=== PATIENT | male | born 1930 | race Caucasian/White ===

== ENCOUNTER 2017-01-26 09:04 | Inpatient (IN) ==
[2017-01-26] MEDS ORDERED: ONDANSETRON 4 MG/2 ML VIAL IV PRN (09:08)
[2017-01-26] MEDS ORDERED: MORPHINE 2 MG/1 ML SYRINGE IV PRN (09:08)
[2017-01-26] MEDS ORDERED: ACETAMINOPHEN 325 MG TABLET PO PRN (09:08)
[2017-01-26] MEDS: SODIUM CHLORIDE 0.45% 1,000 ML IV SCH (10:49)
--- NOTE | 2017-01-26 11:11 | DUMMY REPORT TO COMPLETE ORDER ---
See report scanned to EMR
[2017-01-26 11:18] LABS: Basophils % 0.2 % (0.0-0.8); Eosinophils # 0.1 10*3/uL (0.0-0.87); Eosinophils % 0.5 % (0.00-10.9); Hematocrit 35.4 VOL% (42.0-52.0); Hemoglobin 11.6 GM/DL (14.0-18.0); Immature Granulocytes % 0.4 %; Immature Granulocytes Absolute 0.04 #; Lymphocytes # 0.6 10*3/uL (1.4-4.0); Lymphocytes % 6.2 % (21.2-54.2); Mean Corpuscular HGB Conc 32.8 GM/DL (32-36); Mean Corpuscular Hemoglobin 30 PG (27-34); Mean Corpuscular Volume 92.9 FL (87-102); Mean Platelet Volume 9.4 FL (9.6-12.0); Monocytes # 1.1 10*3/uL (0.11-0.8); Monocytes % 11.1 % (1.7-12.7); Neutrophils # 8.3 10*3/uL (1.4-7.4); Neutrophils % 81.6 % (38.7-73.9); Platelet Count 260 T/CUMM (130-400); Red Blood Count 3.81 MC/CUMM (3.8-5.5); Red Cell Distribution Width 15.1 % (9.3-17.3); White Blood Count 10.1 T/CUMM (4-12)
[2017-01-26] MEDS: AMPICILLIN/SULBACTAM 1,500 MG in SODIUM CHLORIDE 0.9% 50 ML IV SCH ×2 (11:42→18:15)
--- NOTE | 2017-01-26 11:42 | General Surgery Consult Note ---
Assessment and Plan (1) Right lower quadrant abdominal pain Status: Acute Assessment and plan: At this time, labs and imaging are pending. We will follow-up on the results and make recommendations as warranted. Dr. Valverde to follow. Current Visit: Yes History of Present Illness Chief complaint: Abd pain History of present illness: Mr. Villatoro is a 86 year old male with past medical history of CAD status post CABG approximately 10 years ago, hypertension, hyperlipidemia, hypothyroidism and known cholelithiasis who reports a 3 day history of abdominal pain. He reports the pain is constant and severe and began as generalized abdominal pain and then localized right lower quadrant in the past 24 hours. He reports associated nausea and subjective fever, without vomiting, diarrhea, melena, hematochezia, rigors, chest pain, shortness of breath, wheeze, cough, or urinary symptoms. He was started on Actigall and Keppra 2017 for cholelithiasis , and reports overall the symptoms associated with associated with his right upper quadrant have improved. In general, he reports a decline over the past few months with fatigue, anorexia, and nausea even with the odor of food. He reports a 10 pound unintentional weight loss in the past few months without bowel changes; he is up-to-date on his colonoscopy. For the fatigue, he was recently found to be hypotensive with Dr. Pandey and cardiology and his blood pressure medications were reduced with minimal improvement in symptoms. Home Medications Medication Instructions Recorded Confirmed Type Amiodarone Tab [Cordarone Tab] 200 mg PO QPM 06/27/15 01/26/17 History Aspirin EC Tab 81 mg PO QPM 06/27/15 01/26/17 History Carvedilol [Coreg] 6.25 mg PO BID 06/27/15 01/26/17 History Simvastatin [Zocor] 10 mg PO QPM 06/27/15 01/26/17 History Benazepril [Lotensin] 1.5 mg PO QPM 10/30/16 01/26/17 History Levothyroxine Tab [Synthroid Tab] 100 mcg PO QPM 10/30/16 01/26/17 History Ursodiol 300 mg PO BID 10/30/16 01/26/17 History Allergies Allergy/AdvReac Type Severity Reaction Status Date / Time No Known Allergies Allergy Verified 10/30/16 13:18 Medical,Surgical,& Family Hx - Medical History Cardio: History of: Cardiac Dysrhythmia (atrial fib), CAD, Hypertension, [place], Pacemaker No history of: CHF Neurology: No history of: Seizures HEENT: History of: Eye Problem (glasses), Dental Problems (dentures) Endocrine: History of: Dyslipidemia, Thyroid Disorder Genitourinary: History of: Bladder Problem, Kidney Stones, Prostate Problems ( cancer) Gastrointestinal: History of: Diverticulitis/ Diverticulosis, GERD, GI Problems (Cholelithiasis on Actigall) Musculoskeletal: History of: Musculoskeletal Problems (ARTHRITIS-hands) Hematology: History of: Anemia No history of: Blood Transfusion Reaction Other: History of: Cancer (prostate) No history of: Anesthesia Reactions - Surgical History Cardiac Surgeries: Sugical HX of: Cardiac Catheterization, Cardiac Surgery (CABG -triple) Patient Denies: Carotid Endarterectomy HEENT Surgeries: Surgical HX of: Eye Surgery (cataracts) Abdominal Surgeries: Surgical HX of: Colonoscopy, EGD, Hernia Repair Patient denies: Appendectomy, Cholecystectomy Orthopedic Surgeries: Patient denies;: Orthopedic Surgery - Family History Family History: Reports;: Family Cancer (brother) - Social History Smoking Status: Never smoker Frequency of Alcohol Use: None Type of Drug Use: None Marital Status: Lives With:: Spouse Functional capacity: independent ambulation - Cardiovascular Cardiovascular: Present: as per HPI - Respiratory Respiratory: Present: as per HPI - Gastrointestinal Gastrointestinal: Present: as per HPI - Genitourinary Genitourinary: Present: as per HPI Hematologic/Lymphatic: Absent: easy bleeding, easy bruising Exam - Constitutional Vitals: Period Temp Pulse Resp BP Sys/Willard Pulse Ox Last 24 Hr 97.8 F 80 18 150/75 92 General appearance: no acute distress - Head Head exam: Present: normocephalic - Eye Eye exam: Absent: scleral icterus - Neck Neck exam: Present: trachea midline - Respiratory Respiratory exam: Present: clear to auscultation bilaterally - Cardiovascular Cardiovascular exam: Present: RRR - GI/Abdominal GI/Abdominal exam: Present: normal bowel sounds, tenderness (Right lower quadrant), soft. Absent: distended, guarding, Rainey's sign - Extremities Exam Extremities exam: Absent: calf tenderness, edema - Neurological Exam Neurological exam: Present: alert, oriented X3 Speech: Present: normal - Skin Skin exam: Present: normal color, warm Results - Labs CBC & BMP: 01/26/17 11:09 Labs: CMP, lactic acid, and lipase pending - Impressions CT scan abdomen pelvis been Previous medical record was reviewed with acknowledgment of findings of esophageal stricture and GERD by EGD with Dr. Omkar Cardoso in June 2015 and May abdominal ultrasound revealed cholelithiasis for which Actigall was initiated; no evidence of cholecystitis at that time
[2017-01-26 11:48] LABS: Albumin 3.2 G/DL (3.4-5.0); Bilirubin,Total 0.5 MG/DL (0.2-1.0); Calcium 8.6 MG/DL (8.5-10.1); Potassium 4.6 MMOL/L (3.5-5.1); Total Protein 6.7 G/DL (6.4-8.3)
[2017-01-26 11:53] LABS: Apearance,Urine Slightly Hazy (Clear); Bacteria,Urine Occasional /HPF (Few); Bilirubin,Urine Negative (Negative); Blood, Urine Large mg/dL (Negative); Glucose,Urine (UA) Negative (Negative); Hyaline Casts,Urine 2 /LPF (0-3); Ketones,Urine 5 mg/dL (Negative); Mucus,Urine Occasional /LPF (Occasional); Nitrite,Urine Negative (Negative); Protein,Urine 30 MG/DL; RBC,Urine 148 /HPF (0-4); Urine Color Yellow (Yellow); Urine Specific Gravity 1.024 (1.001-1.035); Urine Urobilinogen < 2.0 EU/DL (0.2-1.0); WBC,Urine 1 /HPF (0-6)
--- NOTE | 2017-01-26 12:32 | XRay Report ---
Portable chest Date: 01/26/2017 Clinical history: Respiratory preoperative evaluation Comparison: 10/30/2016 Technique: Portable AP sitting chest Findings: Persistent cardiomegaly in patient with prior median sternotomy with stable left subclavian atrioventricular AICD. Progressive relative elevation of the left hemidiaphragm with increased adjacent atelectasis with underlying scarring. Gaseous distention of the visualized bowel in the left upper quadrant. Old healed fracture of the left clavicle with degenerative changes. Impression: Status post median sternotomy with chronic scarring. Left subclavian atrioventricular AICD. Progressive elevation of the left hemidiaphragm with increased atelectasis at the left lung base and associated gaseous distention of the visualized bowel. Follow-up x-ray of the abdomen may be helpful for further evaluation. PROCEDURE INTERPRETED AT [facility] DEPARTMENT OF RADIOLOGY Final Report Signed by: Dr. Ruthie Gee
--- NOTE | 2017-01-26 14:18 | CT Report ---
CT of the abdomen and pelvis without intravenous contrast. Indication: Right lower quadrant abdominal pain. Oral contrast was administered. Comparison is made to a previous exam of March 20, 2008. There are chronic lung changes present within the bases, which have progressed since the previous study. There has been a previous median sternotomy. The heart is enlarged. There is a pacemaker present. There is no pericardial effusion. There is coronary artery calcification. There is elevation of the left hemidiaphragm. There is increased density of the liver which was not present in 2008. No focal liver lesions are noted. The liver size is normal. There is no biliary ductal dilatation. Gallstones are visible. There are splenic granulomas. The spleen size is normal. The adrenal glands are normal in size. There is pancreatic atrophy. No focal pancreatic lesions are seen and there is no pancreatic ductal dilatation. The kidneys demonstrate cortical thinning bilaterally. There is an extrarenal pelvis on the left. There is a 5 mm calculus at the lower pole of the right kidney. The right ureter is dilated to the L4 level, where a 5 mm calculus results in moderate hydronephrosis. There is stranding in the pararenal fat, and in the retroperitoneum which could be due to microperforation or infection. The urinary bladder presents a normal appearance. There are foreign bodies seen within the prostate gland consistent with radiation pellets. There is heavy calcific plaque within the abdominal aorta and iliac arteries which are not dilated. The gastric contour is normal. The loops of small intestine are not significantly dilated. The terminal ileum and appendix present a normal appearance. The cecum is prominent and contains a large amount of fecal material and gas. Similar findings are seen involving the transverse colon. There is no evidence of bowel obstruction. Scattered diverticuli within the distal colon. No findings to suggest diverticulitis. No free air or free fluid is noted within the pelvic region. The osseous structures are diffusely demineralized. Degenerative changes are also present. Impression: 1. Obstruction of the right mid ureter by 5 mm calculus resulting in moderate hydronephrosis. 2. Stranding around the kidney, and ureter on the right, which could be due to microperforation or infection. 3. Progressive scarring at the lung bases. 4. Cardiomegaly. 5. Chronic elevation of the left hemidiaphragm. 6. Interval development of a hyperdense liver, which can be due to iron overload, Doroteo disease, glycogen storage disease, or certain drugs including amiodarone. 7. Diverticulosis without findings of diverticulitis. 8. Cholelithiasis. 9. Left extrarenal pelvis. The CT exam was performed using one or more of the following dose reduction techniques: Automated exposure control, adjustment of the mA and/or kV according to patient size, or use of iterative reconstruction technique. PROCEDURE INTERPRETED AT [facility] DEPARTMENT OF RADIOLOGY Final Report Signed by: Dr. Julianna Caballero
--- NOTE | 2017-01-26 15:02 | Urology Consultation ---
History of Present Illness - Data of Consult Consult date: 01/26/17 - Consult Narrative History of present illness: Mr. Villatoro is a 86 year old male This 86-year-old white male is known to me. He has a past history of bladder stones but no renal stones. He was admitted to the hospital with a 2-3 day history of pain in the right lower abdomen and his evaluation thus far includes a urinalysis which shows hematuria slight elevation in his creatinine and a CT scan shows a stone in the right kidney and a 5 mm stone in the right mid ureter. He denies any flank pain and he has no CVA tenderness on physical examination. The stone in the right kidney is also 5 mm. There is moderate hydronephrosis on the CT scan. Meningitic. I am going to get a KUB and tomograms of the right ureter to see if the stone is visualized and then we can either consider lithotripsy ureteroscopy or give the patient an opportunity to pass the stone CC: Wade Rojas MD - Home Medications and Allergies Home Medications: Home Medications Medication Instructions Recorded Confirmed Type Amiodarone Tab [Cordarone Tab] 200 mg PO BEDTIME 06/27/15 01/26/17 History Aspirin EC Tab 81 mg PO BEDTIME 06/27/15 01/26/17 History Carvedilol [Coreg] 6.25 mg PO BID W/MEALS 06/27/15 01/26/17 History Simvastatin [Zocor] 10 mg PO BEDTIME 06/27/15 01/26/17 History Benazepril [Lotensin] 1.25 mg PO BEDTIME 10/30/16 01/26/17 History Levothyroxine Tab [Synthroid Tab] 100 mcg PO BEDTIME 10/30/16 01/26/17 History Ursodiol 300 mg PO BID 10/30/16 01/26/17 History Allergies/Adverse Reactions: Allergies Allergy/AdvReac Type Severity Reaction Status Date / Time No Known Allergies Allergy Verified 10/30/16 13:18 Medical,Surgical,& Family Hx - Medical History Cardio: History of: Cardiac Dysrhythmia (atrial fib), CAD, Hypertension, [place], Pacemaker No history of: CHF Neurology: No history of: Seizures HEENT: History of: Eye Problem (glasses), Dental Problems (dentures) Endocrine: History of: Dyslipidemia, Thyroid Disorder Respiratory: History of: Respiratory Problems (gets sob with atrial fib at times ) Genitourinary: History of: Bladder Problem, Kidney Stones, Prostate Problems ( cancer) Gastrointestinal: History of: Diverticulitis/ Diverticulosis, GERD, GI Problems (Cholelithiasis on Actigall) No history of: Hepatitis, Liver Problems Musculoskeletal: History of: Musculoskeletal Problems (ARTHRITIS-hands) Hematology: History of: Anemia No history of: Blood Transfusion Reaction Other: History of: Cancer (prostate) No history of: Anesthesia Reactions - Surgical History Cardiac Surgeries: Sugical HX of: Cardiac Catheterization, Cardiac Surgery (CABG -triple) Patient Denies: Carotid Endarterectomy HEENT Surgeries: Surgical HX of: Eye Surgery (cataracts) Patient denies: Carotid Endarterectomy, Tonsilectomy & Adenoidectomy Abdominal Surgeries: Surgical HX of: Colonoscopy, EGD, Hernia Repair Patient denies: Appendectomy, Cholecystectomy Orthopedic Surgeries: Patient denies;: Orthopedic Surgery - Family History Family History: Reports;: Family Cancer (brother) - Social History Smoking Status: Never smoker Frequency of Alcohol Use: None Type of Drug Use: None Exam - Constitutional Vitals: Period Temp Pulse Resp BP Sys/Willard Pulse Ox Last 24 Hr 97.8 F-97.8 F 67-80 18-18 150-197/75-89 92-93 Results - Labs CBC & BMP: 01/26/17 11:09 01/26/17 11:08
[2017-01-26] MEDS: CARVEDILOL 6.25 MG TABLET PO SCH (16:29)
--- NOTE | 2017-01-26 17:06 | Family Practice History&Phys ---
Assessment and Plan (1) Right lower quadrant abdominal pain Status: Acute Assessment and plan: 01/26/2017: CT of the abdomen and pelvis has been ordered surgery was consulted and after results of CT urology consult Current Visit: Yes History of Present Illness Chief complaint: Abdominal pain History of present illness: Mr. Villatoro is a 86 year old male Patient is a 86-year-old gentleman presented to my office complaining of severe right-sided abdominal pain. States pain radiated into his right flank as well. Patient had nausea and vomiting associated with this and just felt horrible. She does have a history of gallstones but really never had any pain associated with these. He has not had any fever that he has measured his felt hot. He denies any diarrhea or any blood in his stool or urine. He has lost his appetite. Patient frankly appeared very miserable in the office and he was admitted for emergent evaluation of this discomfort. Home Medications Medication Instructions Recorded Confirmed Type Amiodarone Tab [Cordarone Tab] 200 mg PO BEDTIME 06/27/15 01/26/17 History Aspirin EC Tab 81 mg PO BEDTIME 06/27/15 01/26/17 History Carvedilol [Coreg] 6.25 mg PO BID W/MEALS 06/27/15 01/26/17 History Simvastatin [Zocor] 10 mg PO BEDTIME 06/27/15 01/26/17 History Benazepril [Lotensin] 1.25 mg PO BEDTIME 10/30/16 01/26/17 History Levothyroxine Tab [Synthroid Tab] 100 mcg PO BEDTIME 10/30/16 01/26/17 History Ursodiol 300 mg PO BID 10/30/16 01/26/17 History Allergies Allergy/AdvReac Type Severity Reaction Status Date / Time No Known Allergies Allergy Verified 10/30/16 13:18 - Constitutional Constitutional: Present: fever(s), weight loss. Absent: chills, weakness, weight gain - EENT Eyes: Absent: blurry vision, loss of vision Ears: Absent: decreased hearing Nose, mouth and throat: Absent: nasal congestion, sinus pressure, sore throat - Cardiovascular Cardiovascular: Absent: chest pain at rest, diaphoresis, palpitations - Respiratory Respiratory: Absent: cough, dyspnea, wheezing - Gastrointestinal Gastrointestinal: Present: abdominal pain, nausea, vomiting. Absent: diarrhea, hematochezia, melena - Genitourinary Genitourinary: Absent: dysuria, flank pain, hematuria, nocturia - Musculoskeletal Musculoskeletal: Absent: arthralgias, back pain - Neurological Neurological: Absent: abnormal gait, confusion, focal weakness, numbness, paresthesias - Psychiatric Psychiatric: Absent: anxiety, depression - Endocrine Endocrine: Absent: fatigue, polydipsia, polyphagia - Hematologic/Lymphatic Hematologic/Lymphatic: Absent: easy bleeding, easy bruising Medical,Surgical,& Family Hx - Medical History Cardio: History of: Cardiac Dysrhythmia (atrial fib), CAD, Hypertension, [place], Pacemaker No history of: CHF Neurology: No history of: Seizures HEENT: History of: Eye Problem (glasses), Dental Problems (dentures) Endocrine: History of: Dyslipidemia, Thyroid Disorder Respiratory: History of: Respiratory Problems (gets sob with atrial fib at times ) Genitourinary: History of: Bladder Problem, Kidney Stones, Prostate Problems ( cancer) Gastrointestinal: History of: Diverticulitis/ Diverticulosis, GERD, GI Problems (Cholelithiasis on Actigall) No history of: Hepatitis, Liver Problems Musculoskeletal: History of: Musculoskeletal Problems (ARTHRITIS-hands) Hematology: History of: Anemia No history of: Blood Transfusion Reaction Other: History of: Cancer (prostate) No history of: Anesthesia Reactions - Surgical History Cardiac Surgeries: Sugical HX of: Cardiac Catheterization, Cardiac Surgery (CABG -triple) Patient Denies: Carotid Endarterectomy HEENT Surgeries: Surgical HX of: Eye Surgery (cataracts) Patient denies: Carotid Endarterectomy, Tonsilectomy & Adenoidectomy Abdominal Surgeries: Surgical HX of: Colonoscopy, EGD, Hernia Repair Patient denies: Appendectomy, Cholecystectomy Orthopedic Surgeries: Patient denies;: Orthopedic Surgery - Family History Family History: Reports;: Family Cancer (brother) - Social History Smoking Status: Never smoker Frequency of Alcohol Use: None Type of Drug Use: None Exam - Constitutional Vitals: Period Temp Pulse Resp BP Sys/Willard Pulse Ox Last 24 Hr 97.8 F-98.1 F 67-80 18-20 150-197/75-89 92-93 Exam: General: Objective patient is a well-developed white male who appears to be a great deal of discomfort. He is able to answer questions appropriately HEENT: Pupils equal and reactive to light. Patent nares and airway Neck: No meningismus, adenopathy, thyromegaly. There are no auscultated carotid bruits. Cardiovascular: Regular rhythm. No murmurs or gallops Chest: Clear to auscultation without rales rhonchi wheezes. Abdomen: Patient has direct tenderness of right lower quadrant. There is no rebound or guarding tenderness noted. Bowel sounds were considered normal. Neuro: Cranial nerves intact and DTRs and strength symmetric in all extremities. Dermatologic: No evidence of abnormal lesions or masses. Musculoskeletal: Patient has prominent degenerative changes consistent with osteoarthritis of both hands. Extremities: There is no calf swelling or tenderness Results - Labs CBC & BMP: 01/26/17 11:09 01/26/17 11:08 Lab Results: I have reviewed the past 24 hour labs - Diagnostic Findings Procedure: CT Abdomen and Pelvis: report reviewed by me (Right mid ureteral calculus with hydronephrosis)
--- NOTE | 2017-01-26 17:41 | XRay Report ---
KUB. Renal tomograms. 12 images total. Indication: Hydronephrosis of the right mid ureter. There is gaseous distention of the colon with considerable fecal material. There has been a previous right inguinal hernia repair. Cardiac hardware is seen within the heart. The renal outlines are secured. The calculus seen on CT is located at the L5 level, it measures 5.5 mm on plain film. Tomogram images demonstrate normal location of the kidneys. Bowel limits the exam. The calculus seen within the right ureter is located at the L4-L5 level. It measures 5 mm. PROCEDURE INTERPRETED AT [facility] DEPARTMENT OF RADIOLOGY Final Report Signed by: Dr. Julianna Caballero
[2017-01-26] MEDS ORDERED: AMIODARONE 200 MG TABLET PO SCH (21:00)
[2017-01-26] MEDS ORDERED: LEVOTHYROXINE 100 MCG TABLET PO SCH (21:00)
[2017-01-26] MEDS ORDERED: BENAZEPRIL 5 MG TABLET PO SCH (21:00)
[2017-01-26] MEDS ORDERED: SIMVASTATIN 10 MG TABLET PO SCH (21:00)
[2017-01-26] MEDS: DOCUSATE SODIUM 100 MG CAPSULE PO SCH (21:57)
[2017-01-26] MEDS: URSODIOL 300 MG CAPSULE PO SCH (21:57)
[2017-01-27] MEDS: SODIUM CHLORIDE 0.45% 1,000 ML IV SCH (02:36)
[2017-01-27] MEDS: AMPICILLIN/SULBACTAM 1,500 MG in SODIUM CHLORIDE 0.9% 50 ML IV SCH ×2 (02:37→09:54)
--- NOTE | 2017-01-27 07:28 | Family Practice Progress Note ---
Family Practice - PN: Subj Interval history: Patient states he feels much better this morning. He is certainly not passed his stone as of yet. He denies any nausea vomiting this morning. His stone parent is visible on the tomogram views. Exam (Progress Note) - Constitutional Vitals: Period Temp Pulse Resp BP Sys/Willard Pulse Ox Last 24 Hr 97.5 F-99.2 F 64-80 18-21 137-197/70-89 92-97 Exam: Objective well-developed gentleman who is certainly much more comfortable than yesterday. He states his pain is practically gone at present. Cardiovascular: Heart rates regular without murmurs or gallops Respiratory: The lungs clear to auscultation bilaterally. Abdomen: Abdomen soft and nontender to palpation. Results - Labs CBC & BMP: 01/26/17 11:09 01/26/17 11:08 Lab Results: I have reviewed the past 24 hour labs - Diagnostic Findings Procedure: CT Abdomen and Pelvis: report reviewed by me (Right ureteral calculus ) Assessment and Plan (1) Right lower quadrant abdominal pain Status: Acute Assessment and plan: 01/26/2017: CT of the abdomen and pelvis has been ordered surgery was consulted and after results of CT urology consult 01/27/2017: Patient certainly much relief this morning. Urology to decide whether not to proceed with ESWL Current Visit: Yes
[2017-01-27] MEDS ORDERED: BISACODYL 10 MG SUPP RECTAL ONE (07:49)
--- NOTE | 2017-01-27 07:51 | Discharge Summary ---
Hospital Course - Hospital Course Hospital Course: Patient is a 69-year-old gentleman who presented to the office today admission with severe abdominal pain. He had right lower quadrant tenderness directly. He was admitted emergently and a CT scan was obtained which revealed him to have a 5 mm mid right ureteral stone. Patient in consultation by Dr. Jesse Dumas. Patient is feeling much better and will be discharged today to go for outpatient lithotripsy. Diagnosis - Discharge Diagnosis (1) Right lower quadrant abdominal pain Status: Acute (2) Right ureteral calculus Status: Acute Discharge Plan - Discharge Data Disposition: Disch To Home/Self Care Condition at Discharge: Stable Discharge Diet: advance to your usual diet Activity: resume usual activities as tolerated Hygiene: no restrictions Weight Bearing at Discharge: full weight bearing Driving: no restrictions Contact your physician if you experience:: fever over 101 - Discharge Medications New HYDROcodone/ACETAMIN 7.5-325 [Noel 7.5-325] 1 tablet PO Q6H #20 tablet Ondansetron Tab [Zofran Tab] 4 mg PO Q6H #20 tablet Continue Simvastatin [Zocor] 10 mg PO BEDTIME Carvedilol [Coreg] 6.25 mg PO BID W/MEALS Aspirin EC Tab 81 mg PO BEDTIME Amiodarone Tab [Cordarone Tab] 200 mg PO BEDTIME Levothyroxine Tab [Synthroid Tab] 100 mcg PO BEDTIME Benazepril [Lotensin] 1.25 mg PO BEDTIME Ursodiol 300 mg PO BID - Follow Up or Referral Follow Up: Wade Rojas MD [Primary Care Provider] - 1 Month - Forms/Instructions Exam - Constitutional Vitals: Period Temp Pulse Resp BP Sys/Willard Pulse Ox Last 24 Hr 97.5 F-99.2 F 64-80 18-21 137-197/70-89 92-97 Exam: Objective well-developed gentleman who is certainly much more comfortable than yesterday. He states his pain is practically gone at present. Cardiovascular: Heart rates regular without murmurs or gallops Respiratory: The lungs clear to auscultation bilaterally. Abdomen: Abdomen soft and nontender to palpation. Discharge Results Procedures and tests throughout hospitalization: Pending Orders 01/26/17 11:09 Blood Culture Stat Labs on day of discharge: Labs from last 24 hours 01/26/17 01/26/17 01/26/17 11:41 11:09 11:08 WBC 10.1 RBC 3.81 Hgb 11.6 L Hct 35.4 L MCV 92.9 MCH 30 MCHC 32.8 RDW 15.1 Plt Count 260 MPV 9.4 L Neut % (Auto) 81.6 H Lymph % (Auto) 6.2 L Brewster % (Auto) 11.1 Eos % (Auto) 0.5 Baso % (Auto) 0.2 Neut # (Auto) 8.3 H Lymph # (Auto) 0.6 L Brewster # (Auto) 1.1 H Eos # (Auto) 0.1 Baso # (Auto) 0.0 Immature Gran % 0.4 Nucleated RBC % 0.0 Immature Gran # 0.04 Nucleated RBCs # 0.00 Immature Plt Fraction 0.0 Sodium Potassium Chloride Carbon Dioxide Anion Gap BUN Creatinine GFR Calculation BUN/Creatinine Ratio Glucose Calculated Osmolality Lactic Acid Calcium Total Bilirubin AST ALT Alkaline Phosphatase Total Protein Albumin Globulin Albumin/Globulin Ratio Lipase 113.0 Urine Color Yellow Urine Appearance Slightly hazy Urine pH 5.0 Ur Specific Ellsworth 1.024 Urine Protein 30 Urine Glucose (UA) Negative Urine Ketones 5 Urine Blood Large Urine Nitrate Negative Urine Bilirubin Negative Urine Urobilinogen < 2.0 H Urine Leukocytes Negative Urine RBC 148 Urine WBC 1 Urine Bacteria Occasional Hyaline Casts 2 Urine Mucus Occasional Ur Culture Indicated? Not indicated 01/26/17 01/26/17 11:08 10:59 WBC RBC Hgb Hct MCV MCH MCHC RDW Plt Count MPV Neut % (Auto) Lymph % (Auto) Brewster % (Auto) Eos % (Auto) Baso % (Auto) Neut # (Auto) Lymph # (Auto) Brewster # (Auto) Eos # (Auto) Baso # (Auto) Immature Gran % Nucleated RBC % Immature Gran # Nucleated RBCs # Immature Plt Fraction Sodium 136 Potassium 4.6 Chloride 102 Carbon Dioxide 28 Anion Gap 10.6 BUN 35 H Creatinine 1.80 H GFR Calculation 33 BUN/Creatinine Ratio 19.00 Glucose 107 H Calculated Osmolality 279.0 Lactic Acid 0.8 Calcium 8.6 Total Bilirubin 0.50 AST 43 H ALT 49 Alkaline Phosphatase 111 Total Protein 6.7 Albumin 3.2 L Globulin 3.5 Albumin/Globulin Ratio 0.9 L Lipase Urine Color Urine Appearance Urine pH Ur Specific Ellsworth Urine Protein Urine Glucose (UA) Urine Ketones Urine Blood Urine Nitrate Urine Bilirubin Urine Urobilinogen Urine Leukocytes Urine RBC Urine WBC Urine Bacteria Hyaline Casts Urine Mucus Ur Culture Indicated? DS: Provider Date of admission: 01/26/17 09:56 Primary care physician: Wade Rojas MD Attending physician on admission: Wade Rojas MD Consults: 01/26/17 09:09 Consult to Case Mgmt/Social Srvs [CONS] Routine Reason for Case Mgmt/Social Srvs: Discharge Planning 01/26/17 09:11 Consult to Physician [CONS] Routine Comment: Consulting Provider: Scooby Valverde Person Notified: SHAWN Date Notified: 01/26/17 Time Notified: 10:48 01/26/17 10:32 Consult to Pastoral Services [CONS] Routine Comment: Pastoral Screen: Request Miniature Model Maker Visit 01/26/17 14:29 Consult to Physician [CONS] Routine Comment: obstructing stone with hydronephrosis Consulting Provider: Jose Daniel Dumas Person Notified: Natividad Date Notified: 01/26/17 Time Notified: 14:41 Discharging clinician: Wade Rojas MD Expected date of discharge: 01/27/17
--- NOTE | 2017-01-27 07:54 | Event Note ---
Afebrile vital signs stable. Patient feels much better this morning. He no longer has any right sided abdominal pain. I have recommended he take over-the- counter stool softeners and a mild laxative if needed especially while on narcotics. His abdomen is benign this morning. Please call if needed.
--- NOTE | 2017-01-27 07:54 | Urology Progress Note ---
Urology - PN: Subj Interval history: The stone is seen on KUB. I discussed the treatment options with the patient and his including observation ureteroscopy and lithotripsy. The patient wants to go ahead with lithotripsy today. I discussed the possible complications of failure of the procedure obstruction from fragments and hematuria. If okay with Dr. Rojas we can keep the patient n.p.o. and transfer him to outpatient surgery and I will plan the procedure this afternoon Exam - Constitutional Vitals: Period Temp Pulse Resp BP Sys/Willard Pulse Ox Last 24 Hr 97.5 F-99.2 F 64-80 18-21 137-197/70-89 92-97 Results - Labs CBC & BMP: 01/26/17 11:09 01/26/17 11:08
[2017-01-27 08:21] VITALS: BP 133/75
--- NOTE | 2017-01-27 08:43 | Physician Query Form ---
CLICK EDIT DOCUMENT TO SELECT QUERY ANSWER --> OK --> SIGN Flavia Kelly RN, CCDS Certified Clinical Metal Fabrication Supervisor W) [phone] (f) [phone] [email or web address]: Make your selection(s) from the choices in EACH section by typing an "x" and enter comments in the comment section. Please use your independent medical judgment in providing your response. This request does not imply that any particular answer is desired or expected. CLINICAL INDICATORS: (Providers should not edit this section) The medical record indicates that the patient was admitted with a right ureteral calculus, "hydronephrosis", "urinalysis which shows hematuria slight elevation in his creatinine", creatinine of 1.80#, GFR 33# and the patient is on 12 NS. Clarify which of the following most accurately represents the patient's renal status: ( ) Acute kidney injury (non-traumatic) ( ) Acute renal failure (x ) Acute renal failure with underlying Chronic Kidney Disease (CKD) - please provide stage below ( ) Acute renal failure with pathological renal lesion ( ) Acute renal failure with necrosis ( ) tubular ( ) medullary ( ) cortical ( ) CKD - please provide stage below ( ) End Stage Renal Disease ( ) Acute interstitial nephritis ( ) Hepatorenal syndrome ( ) Other, please specify: ( ) Clinically unable to determine Chronic Kidney Disease Stages Source: National Kid[employer] ( ) Stage I (eGFR > or = 90) ( ) Stage II (eGFR 60 - 89) (x ) Stage III (eGFR 30 - 59) ( ) Stage IV (eGFR 15 - 29) ( ) Stage V (eGFR < 15 or dialysis) COMMENTS: PLEASE ALSO DOCUMENT RESPONSE IN PROGRESS NOTES AND/OR DISCHARGE SUMMARY Use of terms such as suspected, likely, or probable (associated with a specific diagnosis that is being evaluated, monitored, or treated as if it exists) are acceptable and can be restated in the discharge summary if not ruled out. MTDD
[2017-01-27] MEDS ORDERED: PANTOPRAZOLE 40 MG VIAL IV SCH (09:00)
[2017-01-27] MEDS: DOCUSATE SODIUM 100 MG CAPSULE PO SCH (09:00)
[2017-01-27] MEDS: URSODIOL 300 MG CAPSULE PO SCH (09:00)
[2017-01-27] MEDS: CARVEDILOL 6.25 MG TABLET PO SCH (09:00)
== END 2017-01-27 11:04 | disposition home or self-care (01) | DRG 694 ==
LOC: N.2E 09:56
PROVIDERS: ADMIT Family Medicine; ATTEND Family Medicine

== ENCOUNTER 2018-12-27 14:23 | Inpatient (IN) ==
[2018-12-27] MEDS ORDERED: ONDANSETRON 4 MG/2 ML VIAL IV PRN (14:49)
[2018-12-27] MEDS ORDERED: MORPHINE 4 MG/1 ML VIAL IV PRN (14:49)
[2018-12-27] MEDS ORDERED: NALOXONE 0.4 MG/ML VIAL IV PRN (14:49)
[2018-12-27] MEDS ORDERED: ACETAMINOPHEN 325 MG TABLET PO PRN (14:49)
[2018-12-27 16:03] LABS: Basophils # 0.1 10*3/uL (0.0-0.2); Eosinophils # 0.2 10*3/uL (0.0-0.87); Eosinophils % 3.4 % (0.00-10.9); Hematocrit 26.9 VOL% (42.0-52.0); Hemoglobin 8.2 GM/DL (14.0-18.0); Immature Granulocytes % 0.3 %; Immature Granulocytes Absolute 0.02 #; Lymphocytes # 0.8 10*3/uL (1.4-4.0); Lymphocytes % 13.2 % (21.2-54.2); Mean Corpuscular HGB Conc 30.5 GM/DL (32-36); Mean Corpuscular Volume 92.4 FL (87-102); Monocytes % 11.3 % (1.7-12.7); Neutrophils % 70.8 % (38.7-73.9); Platelet Count 283 T/CUMM (130-400); Red Blood Count 2.91 MC/CUMM (3.8-5.5); Red Cell Distribution Width 14.9 % (9.3-17.3); White Blood Count 5.8 T/CUMM (4-12)
[2018-12-27] MEDS: SODIUM CHLORIDE 0.45% 1,000 ML IV SCH (16:18)
[2018-12-27 16:26] LABS: Alanine Aminotransferase 19 U/L (16-61); Albumin 3.3 G/DL (3.4-5.0); Alkaline Phosphatase 94 U/L (45-117); Aspartate Amino Transferase 21 U/L (0-37); Bilirubin,Total < 0.39 MG/DL (0.2-1.0); Blood Urea Nitrogen 32 MG/DL (7-18); Calcium 8.1 MG/DL (8.5-10.1); Glucose 104 MG/DL (74-106); Osmolality,Calculated 287.3 MOS/KG (273-304); Total Protein 7.3 G/DL (6.4-8.3)
[2018-12-27] MEDS: CARVEDILOL 6.25 MG TABLET PO SCH (16:28)
[2018-12-27 18:14] LABS: Apearance,Urine CLEAR (Clear); Bilirubin,Urine Negative (Negative); Blood, Urine Negative (Negative); Glucose,Urine (UA) Negative (Negative); Ketones,Urine Negative (Negative); Mucus,Urine Occasional /LPF (Occasional); Nitrite,Urine Negative (Negative); Protein,Urine Negative; RBC,Urine 2 /HPF (0-4); Squamous Epithelial Cell,Urine Occasional /HPF (0-10); Urine Color Yellow (Yellow); Urine Specific Gravity 1.017 (1.001-1.035); Urine Urobilinogen < 2.0 EU/DL (0.2-1.0); WBC,Urine 2 /HPF (0-6)
[2018-12-27] MEDS: SIMVASTATIN 10 MG TABLET PO SCH (20:55)
[2018-12-27] MEDS: DOCUSATE SODIUM 100 MG CAPSULE PO SCH (20:55)
[2018-12-27] MEDS: ASPIRIN EC 81 MG TABLET PO SCH (20:55)
[2018-12-27] MEDS: AMIODARONE 200 MG TABLET PO SCH (20:55)
[2018-12-27] MEDS: ENOXAPARIN 30 MG/0.3 ML SYRINGE SUBCUT SCH (20:55)
[2018-12-28 05:21] LABS: Risk Ratio 3.92
[2018-12-28] MEDS ORDERED: LEVOTHYROXINE 50 MCG TABLET PO SCH (06:30)
[2018-12-28 08:09] LABS: Basophils # 0.1 10*3/uL (0.0-0.2); Basophils % 1.1 % (0.0-0.8); Eosinophils # 0.2 10*3/uL (0.0-0.87); Eosinophils % 4.9 % (0.00-10.9); Hematocrit 24.9 VOL% (42.0-52.0); Hemoglobin 7.8 GM/DL (14.0-18.0); Immature Granulocytes % 0.2 %; Immature Granulocytes Absolute 0.01 #; Lymphocytes # 0.6 10*3/uL (1.4-4.0); Lymphocytes % 14.2 % (21.2-54.2); Mean Corpuscular HGB Conc 31.3 GM/DL (32-36); Mean Corpuscular Volume 88.9 FL (87-102); Mean Platelet Volume 9.2 FL (9.6-12.0); Monocytes % 11.3 % (1.7-12.7); Neutrophils % 68.3 % (38.7-73.9); Platelet Count 251 T/CUMM (130-400); Red Cell Distribution Width 14.7 % (9.3-17.3); White Blood Count 4.5 T/CUMM (4-12)
[2018-12-28 08:19] LABS: Calcium 8.2 MG/DL (8.5-10.1); Osmolality,Calculated 279.7 MOS/KG (273-304)
[2018-12-28 09:26] LABS: % Iron Saturation 5.9 % (18-50); Ferritin 9.3 ng/ml (26-388)
[2018-12-28] MEDS: CARVEDILOL 6.25 MG TABLET PO SCH (09:45)
[2018-12-28] MEDS: DOCUSATE SODIUM 100 MG CAPSULE PO SCH ×2 (09:45→20:56)
[2018-12-28] MEDS: PANTOPRAZOLE 40 MG TABLET PO SCH (09:45)
[2018-12-28 10:07] LABS: Folate > 24.0 NG/ML (5.4-24.0); Vitamin B12 130 PG/ML (211-911)
[2018-12-28 11:31] LABS: Troponin I < 0.015 NG/ML (0.00-0.045)
[2018-12-28] MEDS: SODIUM CHLORIDE 0.45% 1,000 ML IV SCH (14:29)
[2018-12-28 14:40] LABS: Troponin I < 0.015 NG/ML (0.00-0.045)
[2018-12-28] MEDS ORDERED: hydrALAZINE 20 MG/1 ML VIAL IV PRN (15:26)
[2018-12-28] MEDS: traMADol 50 MG TABLET PO SCH ×2 (15:54→20:54)
[2018-12-28 16:17] LABS: Troponin I < 0.015 NG/ML (0.00-0.045)
[2018-12-28 19:29] LABS: Troponin I < 0.015 NG/ML (0.00-0.045)
[2018-12-28] MEDS: SIMVASTATIN 10 MG TABLET PO SCH (20:54)
[2018-12-28] MEDS: AMIODARONE 200 MG TABLET PO SCH (20:54)
[2018-12-28] MEDS: ASPIRIN EC 81 MG TABLET PO SCH (20:54)
[2018-12-28] MEDS: ENOXAPARIN 30 MG/0.3 ML SYRINGE SUBCUT SCH (20:57)
[2018-12-29 05:44] LABS: Basophils # 0.1 10*3/uL (0.0-0.2); Basophils % 1.2 % (0.0-0.8); Eosinophils # 0.3 10*3/uL (0.0-0.87); Eosinophils % 4.9 % (0.00-10.9); Hemoglobin 8.1 GM/DL (14.0-18.0); Immature Granulocytes % 0.5 %; Immature Granulocytes Absolute 0.03 #; Lymphocytes % 16.9 % (21.2-54.2); Mean Corpuscular HGB Conc 31.2 GM/DL (32-36); Mean Platelet Volume 9.5 FL (9.6-12.0); Monocytes % 13.5 % (1.7-12.7); Platelet Count 283 T/CUMM (130-400); Red Blood Count 2.89 MC/CUMM (3.8-5.5); Red Cell Distribution Width 14.9 % (9.3-17.3); White Blood Count 5.9 T/CUMM (4-12)
[2018-12-29 06:09] LABS: Calcium 8.3 MG/DL (8.5-10.1)
[2018-12-29] MEDS: LEVOTHYROXINE 75 MCG TABLET PO SCH (06:19)
[2018-12-29] MEDS: SODIUM CHLORIDE 0.45% 1,000 ML IV SCH (09:52)
[2018-12-29] MEDS: FOLIC ACID 0.4 MG TABLET PO SCH (09:54)
[2018-12-29] MEDS: traMADol 50 MG TABLET PO SCH ×3 (09:54→20:59)
[2018-12-29] MEDS: PANTOPRAZOLE 40 MG TABLET PO SCH (09:54)
[2018-12-29] MEDS: DOCUSATE SODIUM 100 MG CAPSULE PO SCH ×2 (09:54→20:57)
[2018-12-29] MEDS: ALPHA LIPOIC ACID 200 MG PO SCH (09:54)
[2018-12-29] MEDS: CARVEDILOL 6.25 MG TABLET PO SCH ×2 (10:06→20:57)
[2018-12-29] MEDS ORDERED: POLYETHYLENE GLYCOL POWDER 17 GM PACK PO PRN (19:56)
[2018-12-29] MEDS: ENOXAPARIN 30 MG/0.3 ML SYRINGE SUBCUT SCH (20:56)
[2018-12-29] MEDS: ASPIRIN EC 81 MG TABLET PO SCH (20:57)
[2018-12-29] MEDS: ROSUVASTATIN 20 MG TABLET PO SCH (20:57)
[2018-12-29] MEDS: AMIODARONE 200 MG TABLET PO SCH (20:58)
[2018-12-29] MEDS ORDERED: ROSUVASTATIN 20 MG TABLET PO SCH (21:00)
[2018-12-29] MEDS ORDERED: SIMVASTATIN 40 MG TABLET PO SCH (21:00)
[2018-12-30 04:22] LABS: Basophils # 0.1 10*3/uL (0.0-0.2); Basophils % 1.1 % (0.0-0.8); Eosinophils # 0.4 10*3/uL (0.0-0.87); Eosinophils % 5.8 % (0.00-10.9); Hematocrit 25.3 VOL% (42.0-52.0); Hemoglobin 7.6 GM/DL (14.0-18.0); Immature Granulocytes % 0.3 %; Immature Granulocytes Absolute 0.02 #; Lymphocytes % 16.3 % (21.2-54.2); Mean Platelet Volume 9.4 FL (9.6-12.0); Monocytes % 11.7 % (1.7-12.7); Neutrophils % 64.8 % (38.7-73.9); Platelet Count 271 T/CUMM (130-400); Red Blood Count 2.78 MC/CUMM (3.8-5.5); Red Cell Distribution Width 14.8 % (9.3-17.3); White Blood Count 6.2 T/CUMM (4-12)
[2018-12-30 05:00] LABS: Calcium 8.1 MG/DL (8.5-10.1); Osmolality,Calculated 282.3 MOS/KG (273-304)
[2018-12-30] MEDS: LEVOTHYROXINE 75 MCG TABLET PO SCH (05:40)
[2018-12-30] MEDS: SODIUM CHLORIDE 0.45% 1,000 ML IV SCH ×2 (07:27→23:02)
[2018-12-30] MEDS: ALPHA LIPOIC ACID 200 MG PO SCH (09:42)
[2018-12-30] MEDS: FOLIC ACID 0.4 MG TABLET PO SCH (09:43)
[2018-12-30] MEDS: CARVEDILOL 6.25 MG TABLET PO SCH ×2 (09:43→21:00)
[2018-12-30] MEDS: PANTOPRAZOLE 40 MG TABLET PO SCH (09:44)
[2018-12-30] MEDS: DOCUSATE SODIUM 100 MG CAPSULE PO SCH ×2 (09:44→21:00)
[2018-12-30] MEDS: traMADol 50 MG TABLET PO SCH ×3 (09:46→22:03)
[2018-12-30] MEDS ORDERED: SODIUM CHLORIDE 0.9% 1,000 ML IV PRN (13:33)
[2018-12-30] MEDS: ROSUVASTATIN 20 MG TABLET PO SCH (21:00)
[2018-12-30] MEDS: AMIODARONE 200 MG TABLET PO SCH (21:00)
[2018-12-30] MEDS: ENOXAPARIN 30 MG/0.3 ML SYRINGE SUBCUT SCH (21:01)
[2018-12-30] MEDS: ASPIRIN EC 81 MG TABLET PO SCH (21:01)
[2018-12-31 02:18] LABS: Hematocrit 30.6 VOL% (42.0-52.0); Hemoglobin 9.7 GM/DL (14.0-18.0)
[2018-12-31 05:25] LABS: Basophils # 0.1 10*3/uL (0.0-0.2); Basophils % 1.5 % (0.0-0.8); Eosinophils # 0.4 10*3/uL (0.0-0.87); Eosinophils % 7.1 % (0.00-10.9); Hematocrit 34.5 VOL% (42.0-52.0); Hemoglobin 10.7 GM/DL (14.0-18.0); Immature Granulocytes % 0.3 %; Immature Granulocytes Absolute 0.02 #; Lymphocytes # 0.9 10*3/uL (1.4-4.0); Lymphocytes % 15.5 % (21.2-54.2); Mean Corpuscular Volume 84.4 FL (87-102); Mean Platelet Volume 9.3 FL (9.6-12.0); Monocytes % 10.2 % (1.7-12.7); Neutrophils % 65.4 % (38.7-73.9); Platelet Count 285 T/CUMM (130-400); Red Blood Count 4.09 MC/CUMM (3.8-5.5); Red Cell Distribution Width 19.3 % (9.3-17.3); White Blood Count 6.1 T/CUMM (4-12)
[2018-12-31] MEDS: LEVOTHYROXINE 75 MCG TABLET PO SCH (05:57)
[2018-12-31 06:02] LABS: Calcium 8.7 MG/DL (8.5-10.1); Osmolality,Calculated 277.5 MOS/KG (273-304)
[2018-12-31] MEDS: traMADol 50 MG TABLET PO SCH (08:44)
[2018-12-31] MEDS: FOLIC ACID 0.4 MG TABLET PO SCH (08:44)
[2018-12-31] MEDS: CARVEDILOL 6.25 MG TABLET PO SCH (08:44)
[2018-12-31] MEDS: DOCUSATE SODIUM 100 MG CAPSULE PO SCH (08:45)
[2018-12-31] MEDS: PANTOPRAZOLE 40 MG TABLET PO SCH (08:45)
[2018-12-31] MEDS: ALPHA LIPOIC ACID 200 MG PO SCH (08:49)
[2018-12-31] MEDS ORDERED: FERROUS SULFATE 325 MG TABLET PO SCH (10:30)
[2018-12-31 13:04] VITALS: BP 150/63
== END 2018-12-31 14:38 | disposition home or self-care (01) | DRG 812 ==
LOC: N.TELES
PROVIDERS: ADMIT Family Medicine; ATTEND Family Medicine